=== PATIENT | female | born 1980 | race American Indian/Alaskan Native ===

== ENCOUNTER 2017-12-30 15:51 | Emergency (ER) | payer MEDICAID ==
[2017-12-30 16:23] VITALS: BP 116/81
== END 2017-12-30 20:11 | disposition left against medical advice (07) ==
LOC: ED 15:51
DX: R11.2 Nausea with vomiting, unspecified (principal); R19.7 Diarrhea, unspecified; Z53.21 Procedure and treatment not carried out due to patient leaving prior to being seen by health care provider

== ENCOUNTER 2017-12-31 19:58 | Emergency (ER) | payer MEDICAID ==
--- NOTE | 2018-01-01 02:11 | XRay Report ---
FINAL REPORT EXAM: XR CHEST ROUTINE 2V HISTORY: sob COMPARISON: None available. FINDINGS:: Frontal and lateral views of the chest obtained. Cardiac silhouette is within normal limits. No focal consolidation or effusion. No pneumothorax. Visualized bony thorax is grossly intact. IMPRESSION:: No acute findings.
[2018-01-01 02:22] LABS: Basophils % (Auto) 0.3 % (0.0-1.8); Eosinophils # (Auto) 0.2 K/mm3 (0.0-0.4); Hematocrit 38.7 % (30.3-42.9); Hemoglobin 13.1 gm/dl (10.1-14.3); Lymphocytes # (Auto) 2.2 K/mm3 (1.2-5.4); Lymphocytes % (Auto) 40.1 % (13.4-35.0); Mean Corpuscular HGB Conc 34 % (30-34); Mean Corpuscular Hemoglobin 30 pg (28-32); Mean Corpuscular Volume 88 fl (79-97); Monocytes # (Auto) 0.7 K/mm3 (0.0-0.8); Monocytes % (Auto) 13.1 % (0.0-7.3); Platelet Count 207 K/mm3 (140-440); Red Blood Count 4.39 M/mm3 (3.65-5.03); Red Cell Distribution Width 13.3 % (13.2-15.2)
[2018-01-01 02:59] LABS: BUN/Creatinine Ratio 13; Blood Urea Nitrogen 9 mg/dL (7-17); Calcium 8.7 mg/dL (8.4-10.2); Hemolysis Index 5
[2018-01-01] MEDS ORDERED: MOTRIN PO ONE (05:16)
[2018-01-01] MEDS ORDERED: TESSALON PERLES PO ONE (05:16)
--- NOTE | 2018-01-01 05:16 | Emergency Department Report ---
- General Chief Complaint: Weakness Stated Complaint: WALLACE/WEAKNESS/LOW BACK PAIN Time Seen by Provider: 01/01/18 05:00 Source: patient Mode of arrival: Ambulatory Limitations: No Limitations - History of Present Illness Initial Comments: This is a 37-year-old female nontoxic, well nourished in appearance, no acute signs of distress presents to the ED with c/o of productive cough, body aches, rhinorrhea, feeling weak, and nasal congestion x2 days. Patient stated that when she walks and coughs she starts to get a little short of breathe but denies shortness of breathe now. Patient denies any recent travels, long car, recent hospital stays. Patient denies any calf pain or calf tenderness. Patient denies any chest pain, short of breath, fever, chills, nausea, vomiting , hemoptysis, numbness, tingling, headache or stiff neck. Patient denies any drug allergies. Patient stated PMH includes HTN. MD Complaint: cough, rhinorrhea, nasal congestion, other (body aches) -: days(s) (2) Severity: mild Severity scale (0 -10): 8 Quality: aching Consistency: constant Improves With: nothing Worsens With: nothing Associated Symptoms: rhinorrhea, nasal congestion, cough, shortness of breath. denies: fever, chills, myalgias, diaphoresis, headache, sore throat, stiff neck , chest pain, abdominal pain, nausea, vomiting, diarrhea, dysuria, rash, confusion, right sweats, weight loss, epistaxis, hoarseness, ear pain Treatments Prior to Arrival: none - Related Data Home Medications Medication Instructions Recorded Confirmed Last Taken Vit-Fe Fumar-FA [ 1 tab PO QDAY 05/06/16 05/06/16 05/05/16 Vitamin] Previous Rx's Medication Instructions Recorded Last Taken Type Ibuprofen [Motrin 600 MG tab] 600 mg PO Q6H PRN #40 tablet 05/07/16 Unknown Rx Azithromycin [Zithromax Z-DAYAN] 250 mg PO DAILY #6 tablet 01/01/18 Unknown Rx Benzonatate [Tessalon Perle] 100 mg PO Q6H PRN #20 capsule 01/01/18 Unknown Rx Ibuprofen [Motrin] 600 mg PO Q8H PRN #30 tablet 01/01/18 Unknown Rx Oseltamivir [Tamiflu] 75 mg PO BID #14 cap 01/01/18 Unknown Rx Allergies Allergy/AdvReac Type Severity Reaction Status Date / Time No Known Allergies Allergy Verified 12/31/17 20:16 ED Review of Systems ROS: Stated complaint: WALLACE/WEAKNESS/LOW BACK PAIN Other details as noted in HPI Constitutional: denies: chills, fever Eyes: denies: eye pain, eye discharge, vision change ENT: denies: ear pain, throat pain Respiratory: cough, shortness of breath. 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 ) Hx Diabetes: No Hx Deep Vein Thrombosis: No Hx Renal Disease: No Hx Sickle Cell Disease: No Hx Seizures: No Hx Asthma: No Hx COPD: No Hx HIV: No - Social History Smoking Status: Never Smoker Substance Use Type: Alcohol - Medications Home Medications: Home Medications Medication Instructions Recorded Confirmed Last Taken Type Vit-Fe Fumar-FA [ 1 tab PO QDAY 05/06/16 05/06/16 05/05/16 History Vitamin] Ibuprofen [Motrin 600 MG tab] 600 mg PO Q6H PRN #40 tablet 05/07/16 Unknown Rx Azithromycin [Zithromax Z-DAYAN] 250 mg PO DAILY #6 tablet 01/01/18 Unknown Rx Benzonatate [Tessalon Perle] 100 mg PO Q6H PRN #20 capsule 01/01/18 Unknown Rx Ibuprofen [Motrin] 600 mg PO Q8H PRN #30 tablet 01/01/18 Unknown Rx Oseltamivir [Tamiflu] 75 mg PO BID #14 cap 01/01/18 Unknown Rx ED Physical Exam - General Limitations: No Limitations General appearance: alert, in no apparent distress - Head Head exam: Present: atraumatic, normocephalic - Eye Eye exam: Present: normal appearance, PERRL, EOMI Pupils: Present: normal accommodation - ENT ENT exam: Present: normal exam, normal orophraynx, mucous membranes moist, TM's normal bilaterally, normal external ear exam - Neck Neck exam: Present: normal inspection, full ROM. Absent: tenderness, meningismus, lymphadenopathy, thyromegaly - Respiratory Respiratory exam: Present: normal lung sounds bilaterally. Absent: respiratory distress, wheezes, rales, rhonchi, stridor, chest wall tenderness, accessory muscle use, decreased breath sounds, prolonged expiratory - Cardiovascular Cardiovascular Exam: Present: regular rate, normal rhythm, normal heart sounds. Absent: bradycardia, tachycardia, irregular rhythm, systolic murmur, diastolic murmur, rubs, gallop - GI/Abdominal GI/Abdominal exam: Present: soft, normal bowel sounds. Absent: distended, tenderness, guarding, rebound, rigid, diminished bowel sounds - Rectal Rectal exam: Present: deferred - Extremities Exam Extremities exam: Present: normal inspection, full ROM, normal capillary refill. Absent: tenderness, pedal edema, joint swelling, calf tenderness - Back Exam Back exam: Present: normal inspection, full ROM. Absent: tenderness, CVA tenderness (R), CVA tenderness (L), muscle spasm, paraspinal tenderness, vertebral tenderness, rash noted - Neurological Exam Neurological exam: Present: alert, oriented X3, CN II-XII intact, normal gait, reflexes normal - Psychiatric Psychiatric exam: Present: normal affect, normal mood - Skin Skin exam: Present: warm, dry, intact, normal color. Absent: rash ED Course Vital Signs 12/31/17 20:16 Temperature 98 F Pulse Rate 82 Respiratory 18 Rate Blood Pressure 130/84 O2 Sat by Pulse 99 Oximetry - Reevaluation(s) Reevaluation #1: 01/01/18 05:12 Patient is speaking in full sentences with no signs of distress noted. ED Medical Decision Making - Lab Data Result diagrams: 01/01/18 01:53 01/01/18 01:53 - Medical Decision Making This is a 37-year-old female that presents with upper respiratory infection and influenza. Patient is stable and was examined by me. Chest x-ray has been obtained and dictated by radiologist with normal exam. Patient is notified of x -ray results with no questions noted. Labs within normal limits. Patient stated has no shortness of breathe anymore. Wells cretiera 0 points. No signs or symptoms of PE/DVT. D-dimmer within normal limits. Trop within normal limits. EKG normal sinus rhythm. Due to patient having symptoms of influenza and upper respiratory infection I will treat patient empirically with Tamiflu and zpak. Patient was instructed to increase hydration, rest and take Motrin for fever episodes. Patient received Motrin and tesslone perrls in the ED. Vitals stable. Patient is nonfebrile and normal heart rate. Patient was orally hydrated and patient tolerated well known nausea or vomiting. Patient was instructed Follow-up with a primary care doctor in 3-5 days or if symptoms worsen and continue return to emergency room as soon as possible. At time time of discharge, the patient does not seem toxic or ill in appearance. No acute signs of distress noted. Patient agrees to discharge treatment plan of care. No further questions noted by the patient. Critical care attestation.: If time is entered above; I have spent that time in minutes in the direct care of this critically ill patient, excluding procedure time. ED Disposition Clinical Impression: Influenza Upper respiratory infection Qualifiers: URI type: unspecified URI Qualified Code(s): J06.9 - Acute upper respiratory infection, unspecified Disposition: DC-01 TO HOME OR SELFCARE Is pt being admited?: No Does the pt Need Aspirin: No Condition: Stable Instructions: Upper Respiratory Infection (ED), Azithromycin (By mouth), Oseltamivir (By mouth), Ibuprofen (By mouth), Influenza (ED) Additional Instructions: Follow-up with a primary care doctor in 3-5 days or if symptoms worsen and continue return to emergency room as soon as possible. Increase rest, hydration and take Motrin for fever episodes. Prescriptions: Azithromycin [Zithromax Z-DAYAN] 250 mg PO DAILY #6 tablet Benzonatate [Tessalon Perle] 100 mg PO Q6H PRN #20 capsule PRN Reason: Cough Ibuprofen [Motrin] 600 mg PO Q8H PRN #30 tablet PRN Reason: Pain Oseltamivir [Tamiflu] 75 mg PO BID #14 cap Referrals: PRIMARY CARE, [Primary Care Provider] - 3-5 Days BRI GUZMÁN MD [Staff Physician] - 3-5 Days [facility] [Outside] - 3-5 Days [facility] [Outside] - 3-5 Days Forms: Work/School Release Form(ED)
[2018-01-01 06:10] VITALS: BP 127/91
== END 2018-01-01 05:50 | disposition home or self-care (01) ==
LOC: ED 19:58
DX: J11.1 Influenza due to unidentified influenza virus with other respiratory manifestations (principal); J06.9 Acute upper respiratory infection, unspecified
CPT/HCPCS: 36415; 71046; 80048; 84484; 85025; 85379; 93005; 93010

== ENCOUNTER 2018-05-19 10:17 | Emergency (ER) | payer MEDICAID ==
[2018-05-19 10:30] VITALS: BP 133/88
--- NOTE | 2018-05-19 14:10 | Emergency Department Report ---
Minor Respiratory - HPI Chief Complaint: Sore Throat Stated Complaint: MUSCLE/NECK PAIN/SORE THROAT Time Seen by Provider: 05/19/18 13:56 Duration: Today Pain Location: Throat, Other (muscle ache and generalized headache) Severity: mild (3/10) Minor Respiratory: Yes Sore Throat (3/10. Denies drooling. Denies difficulty swallowing or breathing. Denies any chest pain or shortness of breath), Yes Able to Tolerate Fluids, No Rhinorrhea, No Ear Pain, No Cough, No Sick Contacts , No Hemoptysis, No Chest Pain, No Shortness of Breath, No Fever (positive chills) Other History: This is a 37-year-old female patient here reports that she has sore throat that started this morning muscle ache, chills. She is also having mild generalized headache. Pain is 310 and achy located all over her head. Sore throat is also through the 10. Worse with swallowing. Denies major N. Denies any nasal congestion or runny nose. Denies any cough, chest pain or shortness of breath. Denies any swelling to tongue. No medication taken for pain. She has not taken her temperature ED Review of Systems ROS: Stated complaint: MUSCLE/NECK PAIN/SORE THROAT Other details as noted in HPI Constitutional: chills. denies: fever Eyes: vision change. denies: eye pain, eye discharge ENT: throat pain. denies: ear pain, congestion Respiratory: denies: cough, orthopnea, shortness of breath, SOB with exertion, SOB at rest, stridor, wheezing Cardiovascular: denies: chest pain, palpitations, edema, syncope Gastrointestinal: denies: abdominal pain, nausea, vomiting, diarrhea Genitourinary: denies: urgency, dysuria, frequency, hematuria, discharge, abnormal menses Musculoskeletal: myalgia. denies: back pain, joint swelling, arthralgia Skin: denies: rash, lesions, pruritus Neurological: headache. 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 ) Hx Diabetes: No Hx Deep Vein Thrombosis: No Hx Renal Disease: No Hx Sickle Cell Disease: No Hx Seizures: No Hx Asthma: No Hx COPD: No Hx HIV: No - Surgical History Past Surgical History?: No - Family History Family history: hypertension - Social History Smoking Status: Never Smoker Substance Use Type: None - Medications Home Medications: Home Medications Medication Instructions Recorded Confirmed Last Taken Type Vit-Fe Fumar-FA [ 1 tab PO QDAY 05/06/16 05/06/16 05/05/16 History Vitamin] Azithromycin [Zithromax Z-DAYAN] 250 mg PO DAILY #6 tablet 01/01/18 Unknown Rx Benzonatate [Tessalon Perle] 100 mg PO Q6H PRN #20 capsule 01/01/18 Unknown Rx Ibuprofen [Motrin] 600 mg PO Q8H PRN #30 tablet 01/01/18 Unknown Rx Oseltamivir [Tamiflu] 75 mg PO BID #14 cap 01/01/18 Unknown Rx Clindamycin HCl 300 mg PO Q8H 10 Days #30 capsule 05/19/18 Unknown Rx Ibuprofen [Motrin 600 MG tab] 600 mg PO Q6H PRN #20 tablet 05/19/18 Unknown Rx Minor Respiratory Exam - Exam General: Vital signs noted. No distress. Alert and acting appropriately. This is a 37-year-old female well-nourished well-developed in no acute distress and nontoxic in appearance HEENT: Yes Pharyngeal Erythema (uvula midline and oral airways patent), Yes Pharyngeal Exudates, Yes Moist Mucous Membranes (no drooling noted.), No Rhinorrhea, No Conjuctival Injection, No Frontal Tenderness, No Maxillary Tenderness Ear: Neither TM Bulge, Neither TM Erythema, Neither EAC Pain, Neither EAC Discharge Neck: Yes Adenopathy (anterior right, bilateral), Yes Supple (full range of motion and no C-spine tenderness) Lungs: Yes Good Air Exchange (CTAB), No Wheezes, No Ronchi, No Stridor, No Cough , No Labored Respirations, No Retractions, No Use of Accessory Muscles, No Other Abnormal Lung Sounds Heart: Yes Regular (S1, S2. Regular rate and rhythm), No Murmur Abdomen: Yes Normal Bowel Sounds (in all quadrants), No Tenderness (NTTP), No Peritoneal Signs Skin: No Rash, No Edema Neurologic: Alert and oriented, no deficits. Musculoskeletal: Unremarkable. ED Course Vital Signs 05/19/18 10:27 Temperature 98.7 F Pulse Rate 78 Respiratory 18 Rate Blood Pressure 133/88 O2 Sat by Pulse 100 Oximetry - Reevaluation(s) Reevaluation #1: 05/19/18 15:05 Patient given clindamycin 600 mg by mouth and Motrin 800 mg by mouth at emergency room to treat strep throats and for sore throat and headache which helped her pain. She was able to tolerate oral liquids in the emergency room without any difficulties ED Medical Decision Making - Medical Decision Making ED course Patient came to the emergency room before that she started having sore throat, chills, body ache, and generalized headache that started this morning. She did not take any pain medication for pain and she is here to be checked. I examined patient and he is in stable condition. Patient found to have exudative pharyngitis based on Centor criteria she has red throat, exudate to oropharynx, lymphedema and opacity to neck, headache and chills with absence of cough therefore no tetanus needed for strep. This was explained to patient and she voiced understanding the diagnosis and treatment plan. This controlled with Motrin. 1: Exudative pharyngitis- Based on Centor criteria with chills, enlarged lymph nodes, headache, sore throats, red exudative oropharynx with absence of cough or any respiratory symptoms patient qualified to be treated for strep. Patient started on and the mycin and is given 800 mg by mouth and emergency room. Sore throat him a headache and muscle aches is better. Is better after Motrin and Tylenol 2: Body ache-Motrin 3: Acute headache: Resolved after Motr Prescription for gentamicin and Motrin Patient educated on diagnosis, medication,and need to follow-up with primary care physician in 2 days. She voiced understanding . Patient discharged home in stable condition and pain is controlled. Vital signs are stable and he is afebrile .patient to follow-up with his PCP in 2 days . Patient is nontoxic in appearance. . I also instructed her that if her symptoms worsen to return to the emergency room [id number]. She voiced understanding of discharge instructions. - Differential Diagnosis [employer], strep pharyngitis, allergic rhinitis and viral sore throat Critical care attestation.: If time is entered above; I have spent that time in minutes in the direct care of this critically ill patient, excluding procedure time. ED Disposition Clinical Impression: Exudative pharyngitis, Body aches, Anterior cervical adenopathy Headache Qualifiers: Headache type: unspecified Headache chronicity pattern: unspecified pattern Intractability: not intractable Qualified Code(s): R51 - Headache Disposition: DC-01 TO HOME OR SELFCARE Is pt being admited?: No Does the pt Need Aspirin: No Condition: Stable Instructions: Strep Throat (ED), Lymphadenopathy (ED), Musculoskeletal Pain (ED ), Acute Headache (ED) Additional Instructions: Please increase her fluid intake Take antibiotic as instructed Motrin for pain and/or fever Practice good hand hygiene The symptoms worsen, return to the emergency room otherwise follow-up with your primary care in 2 days Prescriptions: Clindamycin HCl 300 mg PO Q8H 10 Days #30 capsule Ibuprofen [Motrin 600 MG tab] 600 mg PO Q6H PRN #20 tablet PRN Reason: Pain Referrals: PRIMARY CARE, [Primary Care Provider] - 05/21/18 Forms: Accompanied Note, Work/School Release Form(ED)
[2018-05-19] MEDS ORDERED: CLEOCIN PO ONE (15:04)
[2018-05-19] MEDS ORDERED: MOTRIN PO ONE (15:04)
== END 2018-05-19 15:23 | disposition home or self-care (01) ==
LOC: ED 10:17
DX: J02.9 Acute pharyngitis, unspecified (principal); R59.0 Localized enlarged lymph nodes; M79.1 Myalgia; R51 Headache
CPT/HCPCS: 99282

== ENCOUNTER 2021-09-04 11:13 | Emergency (ER) | payer OTHER, BC ==
[2021-09-04] MEDS ORDERED: TETANUS,DIPH,PERTUSS(ACELL) VACCINE 0.5 ML SYRINGE IM ONE (11:34)
--- NOTE | 2021-09-04 12:23 | XRay Report ---
RIGHT HAND 3 VIEW(S) INDICATION / CLINICAL INFORMATION: lac COMPARISON: None available. FINDINGS: BONES / JOINT(S): No acute fracture or subluxation. No significant arthritis. SOFT TISSUES: No significant abnormality. No radiopaque foreign body. ADDITIONAL FINDINGS: None. Signer Name: Pedrito Tuttle MD Signed: 09/04/2021 12:18 PM Workstation Name: [id number]
--- NOTE | 2021-09-04 12:33 | Emergency Department Report ---
ED Laceration HPI - HPI Chief Complaint: Wound/Laceration Stated Complaint: FINGER INJURY/CUT Time Seen by Provider: 09/04/21 11:34 Occurred When: Today Severity: mild Tetanus Status: Not up to Date Laceration Symptoms: Yes Pain, No Foreign Body Sensation, No Numbness, No Weakness Other History: This is a 41-year-old female nontoxic, well nourished in appearance, no acute signs of distress presents to the ED with c/o of right index finger laceration that occurred today prior to arrival. Patient stated she was cutting onion which caused a laceration from the machine of the bleed. Patient denies decreased sensation or range of motion. Patient stated bleeding is under control. Denies any numbness, tingling, fever, chills, nausea, vomit ing, chest pain, shortness of breath, headache or stiff neck. Patient denies any allergies to significant past medical history. Patient is that he is not up-to-date with tetanus. ED Review of Systems ROS: Stated complaint: FINGER INJURY/CUT Other details as noted in HPI Comment: All other systems reviewed and negative Constitutional: denies: chills, fever Eyes: denies: eye pain, eye discharge, vision change ENT: denies: ear pain, throat pain Respiratory: denies: cough, shortness of breath, wheezing Cardiovascular: denies: chest pain, palpitations Endocrine: no symptoms reported Gastrointestinal: denies: abdominal pain, nausea, diarrhea Genitourinary: denies: urgency, dysuria, discharge Musculoskeletal: denies: back pain, joint swelling, arthralgia Skin: denies: rash, lesions Neurological: denies: headache, weakness, paresthesias Psychiatric: denies: anxiety, depression Hematological/Lymphatic: denies: easy bleeding, easy bruising ED Past Medical Hx - Past Medical History Previous Medical History?: Yes 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 ) Hx Diabetes: No Hx Deep Vein Thrombosis: No Hx Renal Disease: No Hx Sickle Cell Disease: No Hx Seizures: No Hx Asthma: No Hx COPD: No Hx HIV: No - Social History Smoking Status: Never Smoker Substance Use Type: None - Medications Home Medications: Home Medications Medication Instructions Recorded Confirmed Last Taken Type Vit-Fe Fumar-FA [ 1 tab PO QDAY 05/06/16 05/06/16 05/05/16 History Vitamin] Azithromycin [Zithromax Z-DAYAN] 250 mg PO DAILY #6 tablet 01/01/18 Unknown Rx Benzonatate [Tessalon Perle] 100 mg PO Q6H PRN #20 capsule 01/01/18 Unknown Rx Ibuprofen [Motrin] 600 mg PO Q8H PRN #30 tablet 01/01/18 Unknown Rx Oseltamivir [Tamiflu] 75 mg PO BID #14 cap 01/01/18 Unknown Rx Clindamycin HCl 300 mg PO Q8H 10 Days #30 capsule 05/19/18 Unknown Rx Ibuprofen [Motrin 600 MG tab] 600 mg PO Q6H PRN #20 tablet 05/19/18 Unknown Rx Laceration Physical Exam - Exam General: Vital signs noted. No distress. Alert and acting appropriately. Wound Length (cm): 1 (Right index finger superficial) Laceration Location: Upper Extremity Laceration Exam: Yes Normal Distal CMS, No Foreign Body, No Exposed Tendon, Vessel, or Nerve, No Tendon Injury ED Course Vital Signs 09/04/21 11:28 Temperature 98.4 F Pulse Rate 66 Respiratory 18 Rate Blood Pressure 122/92 O2 Sat by Pulse 99 Oximetry - Reevaluation(s) Reevaluation #1: 09/04/21 12:31 Patient is speaking in full sentences with no signs of distress noted. - Laceration /Wound Repair Right Finger Wound Location: upper extremity (Right index finger) Wound Length (cm): 1 Wound's Depth, Shape: superficial Wound Explored: clean Irrigated w/ Saline (ccs): 40 Betadine Prep?: Yes Wound Repaired With: Dermabond Layer Closure?: No Sterile Dressing Applied?: Yes Progress: Under sterile field, I used Betadine to clean the area. I then used 40 mL of normal saline to flush the area. I then used Dermabond to approximate the laceration. I then applied a sterile 4 x 4 with tape. Minimal bleeding noted but is under control. Patient tolerated procedure well with no signs of distress. ED Medical Decision Making - Medical Decision Making This is a 5-year-old female that presents with laceration. Patient is stable and was examined by me. Dermabond applied and patient tolerated well. A sterile dressing has been applied. Patient was educated on proper wound care. Patient was instructed to refer to Follow-up with a primary care doctor in 3-5 days or if symptoms worsen and continue return to emergency room as soon as possible. At time of discharge, the patient does not seem toxic or ill in appearance. No acute signs of distress noted. Patient agrees to discharge treatment plan of care. No further questions noted by the patient. Critical care attestation.: If time is entered above; I have spent that time in minutes in the direct care of this critically ill patient, excluding procedure time. ED Disposition Clinical Impression: Laceration Disposition: HOME / SELF CARE / HOMELESS Is pt being admited?: No Does the pt Need Aspirin: No Condition: Stable Instructions: Laceration Care, Adult, Tissue Adhesive Wound Care Additional Instructions: Follow-up with a primary care doctor in 3-5 days or if symptoms worsen and continue return to emergency room as soon as possible. Referrals: PRIMARY CAREMD [Referring] - 3-5 Days JOHN ZURITA MD [Staff Physician] - 3-5 Days Forms: Work/School Release Form(ED) Time of Disposition: 12:33
[2021-09-04 13:37] VITALS: BP 125/73
== END 2021-09-04 13:42 | disposition home or self-care (01) ==
LOC: ED 11:13
DX: S61.210A Laceration without foreign body of right index finger without damage to nail, initial encounter (principal); I10 Essential (primary) hypertension; W26.0XXA Contact with knife, initial encounter; Y93.89 Activity, other specified; Y92.89 Other specified places as the place of occurrence of the external cause; Y99.8 Other external cause status
CPT/HCPCS: 90471; 90715; 99283

== ENCOUNTER 2021-11-10 11:22 | Emergency (ER) | payer BC, OTHER ==
--- NOTE | 2021-11-10 11:39 | Emergency Department Report ---
- General Chief Complaint: Upper Respiratory Infection Stated Complaint: FLU LIKE SYMPTOMS Time Seen by Provider: 11/10/21 11:29 Source: patient Mode of arrival: Ambulatory Limitations: No Limitations - History of Present Illness Initial Comments: Patient is a 41-year-old female presents emergency room complaints of flulike symptoms that began last night. She has associated generalized body aches, chills, subjective fever, nausea, couple episodes of vomiting, headache. She denies any sore throat, ear pain, cough, shortness of breath, chest pain, abdominal pain, diarrhea. She reports that her son's girlfriend tested positive for COVID-19. She states that her daughter has also had similar symptoms. She has not been vaccinated for COVID-19. She reports that she went to get tested today but is awaiting her results. No allergies to medications - Related Data Home Medications Medication Instructions Recorded Confirmed Last Taken Vit-Fe Fumar-FA [ 1 tab PO QDAY 05/06/16 05/06/16 05/05/16 Vitamin] Previous Rx's Medication Instructions Recorded Last Taken Type Azithromycin [Zithromax Z-DAYAN] 250 mg PO DAILY #6 tablet 01/01/18 Unknown Rx Benzonatate [Tessalon Perle] 100 mg PO Q6H PRN #20 capsule 01/01/18 Unknown Rx Ibuprofen [Motrin] 600 mg PO Q8H PRN #30 tablet 01/01/18 Unknown Rx Oseltamivir [Tamiflu] 75 mg PO BID #14 cap 01/01/18 Unknown Rx Clindamycin HCl 300 mg PO Q8H 10 Days #30 capsule 05/19/18 Unknown Rx Ibuprofen [Motrin 600 MG tab] 600 mg PO Q6H PRN #20 tablet 05/19/18 Unknown Rx Benzonatate [Tessalon Perles] 100 mg PO Q8HR PRN #10 capsule 11/10/21 Unknown Rx Butalb/Acetaminophen/Caffeine 1 cap PO Q8HR PRN #10 cap 11/10/21 Unknown Rx [Fioricet 50-300-40 mg CAP] Ondansetron [Zofran Odt] 4 mg PO Q8HR PRN #10 tab.rapdis 11/10/21 Unknown Rx guaiFENesin ER [Mucinex ER] 600 mg PO Q12H #14 tablet.er 12/18/21 Unknown Rx Allergies Allergy/AdvReac Type Severity Reaction Status Date / Time No Known Allergies Allergy Verified 12/31/17 20:16 ED Review of Systems ROS: Stated complaint: FLU LIKE SYMPTOMS Other details as noted in HPI Comment: All other systems reviewed and negative ED Past Medical Hx - Past Medical History 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 ) Hx Diabetes: No Hx Deep Vein Thrombosis: No Hx Renal Disease: No Hx Sickle Cell Disease: No Hx Seizures: No Hx Asthma: No Hx COPD: No Hx HIV: No - Social History Smoking Status: Never Smoker Substance Use Type: None - Medications Home Medications: Home Medications Medication Instructions Recorded Confirmed Last Taken Type Vit-Fe Fumar-FA [ 1 tab PO QDAY 05/06/16 05/06/16 05/05/16 History Vitamin] Azithromycin [Zithromax Z-DAYAN] 250 mg PO DAILY #6 tablet 01/01/18 Unknown Rx Benzonatate [Tessalon Perle] 100 mg PO Q6H PRN #20 capsule 01/01/18 Unknown Rx Ibuprofen [Motrin] 600 mg PO Q8H PRN #30 tablet 01/01/18 Unknown Rx Oseltamivir [Tamiflu] 75 mg PO BID #14 cap 01/01/18 Unknown Rx Clindamycin HCl 300 mg PO Q8H 10 Days #30 capsule 05/19/18 Unknown Rx Ibuprofen [Motrin 600 MG tab] 600 mg PO Q6H PRN #20 tablet 05/19/18 Unknown Rx Benzonatate [Tessalon Perles] 100 mg PO Q8HR PRN #10 capsule 11/10/21 Unknown Rx Butalb/Acetaminophen/Caffeine 1 cap PO Q8HR PRN #10 cap 11/10/21 Unknown Rx [Fioricet 50-300-40 mg CAP] Ondansetron [Zofran Odt] 4 mg PO Q8HR PRN #10 tab.rapdis 11/10/21 Unknown Rx guaiFENesin ER [Mucinex ER] 600 mg PO Q12H #14 tablet.er 11/10/21 Unknown Rx ED Physical Exam - General Limitations: No Limitations General appearance: alert, in no apparent distress - Head Head exam: Present: atraumatic, normocephalic - Eye Eye exam: Present: normal appearance - ENT ENT exam: Present: normal orophraynx, mucous membranes moist, TM's normal bilaterally, normal external ear exam - Respiratory Respiratory exam: Present: normal lung sounds bilaterally. Absent: respiratory distress, wheezes, rales, rhonchi, stridor, chest wall tenderness, accessory muscle use, decreased breath sounds, prolonged expiratory - Cardiovascular Cardiovascular Exam: Present: regular rate, normal rhythm, normal heart sounds. Absent: systolic murmur, diastolic murmur, rubs, gallop - Neurological Exam Neurological exam: Present: alert, oriented X3 - Psychiatric Psychiatric exam: Present: normal affect, normal mood - Skin Skin exam: Present: warm, dry, intact ED Course Vital Signs 11/10/21 11/10/21 11:26 11:44 Temperature 98 F Pulse Rate 86 70 Respiratory 18 15 Rate Blood Pressure 119/85 112/80 [Right] O2 Sat by Pulse 99 100 Oximetry ED Medical Decision Making - Medical Decision Making Patient is a 41-year-old female presents emergency room complaints of flulike symptoms that began last night. She has associated generalized body aches, chills, subjective fever, nausea, couple episodes of vomiting, headache. She denies any sore throat, ear pain, cough, shortness of breath, chest pain, abdominal pain, diarrhea. She reports that her son's girlfriend tested positive for COVID-19. She states that her daughter has also had similar symptoms. She has not been vaccinated for COVID-19. She reports that she went to get tested today but is awaiting her results. No allergies to medications. Vitals are normal. No hypoxia, no tachycardia, no fever. Breath sounds are clear bilaterally, no wheezing, no rales, no rhonchi, normal oropharynx, normal TMs bilaterally. Symptoms likely related to URI. Patient has no clinical signs of bacterial pneumonia or bacterial bronchitis. Discussed supportive care and symptomatic treatment with patient. Discussed the importance of oral hydration. Discussed return precautions and outpatient primary care follow-up. Advised patient Please take medication as prescribed as needed. Increase your water intake. Follow-up with your primary care doctor. Return to emergency room for any new or worsening symptoms. Recommend outpatient COVID-19 testing and if positive will need to self quarantine for 10 days from onset of symptoms, recommend testing 2 to 3 days from onset of symptoms. Critical care attestation.: If time is entered above; I have spent that time in minutes in the direct care of this critically ill patient, excluding procedure time. ED Disposition Clinical Impression: Upper respiratory infection Qualifiers: URI type: unspecified URI Qualified Code(s): J06.9 - Acute upper respiratory infection, unspecified Disposition: 01 HOME / SELF CARE / HOMELESS Is pt being admited?: No Does the pt Need Aspirin: No Condition: Stable Instructions: Viral Respiratory Infection Additional Instructions: Please take medication as prescribed as needed. Increase your water intake. Follow-up with your primary care doctor. Return to emergency room for any new or worsening symptoms. Recommend outpatient COVID-19 testing and if positive will need to self quarantine for 10 days from onset of symptoms, recommend testing 2 to 3 days from onset of symptoms. Prescriptions: Butalb/Acetaminophen/Caffeine [Fioricet 50-300-40 mg CAP] 1 cap PO Q8HR PRN #10 cap PRN Reason: headache guaiFENesin ER [Mucinex ER] 600 mg PO Q12H #14 tablet.er Benzonatate [Tessalon Perles] 100 mg PO Q8HR PRN #10 capsule PRN Reason: cough Ondansetron [Zofran Odt] 4 mg PO Q8HR PRN #10 tab.rapdis PRN Reason: nausea/vomiting Referrals: JOHN ZURITA MD [Staff Physician] - 3-5 Days [facility] [Provider Group] - 3-5 Days Forms: Work/School Release Form(ED) Time of Disposition: 11:37 Print Language: GREEK
[2021-11-10 11:47] VITALS: BP 112/80
== END 2021-11-10 11:50 | disposition home or self-care (01) ==
LOC: ED 11:22
DX: J06.9 Acute upper respiratory infection, unspecified (principal)
CPT/HCPCS: 99282